=== PATIENT | female | born 1930 | race Caucasian/White ===

== ENCOUNTER 2017-09-28 11:06 | Emergency (ER) | payer MEDICARE ==
[~2017-09-28] VITALS: Ht 144.8 cm; Wt 52.0 kg
[~2017-09-28 11:06] MED LIST: AMLO5TAB22 PO; METO25 PO; NOVONP2 SQ
[2017-09-28 11:12] VITALS: BP 192/77; PULSE 17; PULSE 84; RESP 18; TEMP 97.5
[2017-09-28 11:22] VITALS: O2SAT 97
[2017-09-28] MEDS ORDERED: SODIUM CHLOR 0.9% 1000 ML INJ 1,000 ML IV ONE (11:26)
[2017-09-28] MEDS ORDERED: AMLO10TA2 PO (11:29)
[2017-09-28] MEDS ORDERED: AMLO5TAB2 PO (11:29)
[2017-09-28] MEDS ORDERED: NOVONP2 SQ (11:29)
--- NOTE | 2017-09-28 11:29 | PD ---
HPI Chief Complaint: Numbness/Tingling Time Seen by Provider: 11:26 Travel History International Travel<30 days: No Contact w/Intl Traveler<30days: No Traveled to known affect area: No History of Present Illness HPI 87-year-old female presents emergency department via [facility] for evaluation of generalized weakness that started this morning when she woke up. Says she woke up this morning and felt weak and "trembly" and across the floor to her bathroom. She states she felt her legs were "weak and shaking". Says that this lasted approximately 1 hour but called [facility] for evaluation and transport. Patient says that her symptoms have all but resolved prior to their arrival and says she feels "embarrassed" that she called. She denies fevers, chills, chest pain, shortness of breath, abdominal pain, nausea, vomiting, diarrhea. She denies one-sided weakness. She denies history of heart disease. She has a history of hypertension, asthma, diabetes mellitus, and breast cancer which is in remission. Of note, patient says that her air conditioning has been broke for approximately 1 week. According to [facility], her blood sugar was 107. She states compliance with the medications except this morning and says her blood pressure is elevated. PFSH Past Medical History Cardiovascular Problems: Yes Diabetes: Yes Patient Takes Glucophage: No Diminished Hearing: No Hypertension: Yes Respiratory: Yes Past Surgical History Hysterectomy: Yes Other Surgery: Yes (left mastectomy) Social History Alcohol Use: No Tobacco Use: No Substance Use: No Allergies-Medications (Allergen,Severity, Reaction): Coded Allergies: cefazolin (Unverified Allergy, Severe, Flushing, 11/24/16) Reported Meds & Prescriptions Reported Meds & Active Scripts Active Walker/Adult/Folding (Device) 1 Mis Mis Ea .XX DIRECTED Reported Novolin N Inj (Insulin Human NPH) 1,000 Unit/10 Ml Vial 0 SQ DIRECTED Sliding Scale As Directed. Amlodipine (Amlodipine Besylate) 10 Mg Tab 10 Mg PO DAILY Amlodipine (Amlodipine Besylate) 5 Mg Tab 5 Mg PO HS Review of Systems Except as stated in HPI: all other systems reviewed are Neg Physical Exam Narrative GENERAL: Well-developed well-nourished no apparent distress SKIN: Focused skin assessment warm/dry. Single papule on nose on erythematous base, 2 other papules on left cheek and left forehead without extension into scalp HEAD: Atraumatic. Normocephalic. EYES: Pupils equal and round. No scleral icterus. No injection or drainage. ENT: No nasal bleeding or discharge. Mucous membranes pink and moist. NECK: Trachea midline. No JVD. No lymphadenopathy CARDIOVASCULAR: Regular rate and rhythm. No murmur appreciated. RESPIRATORY: No accessory muscle use. Clear to auscultation. Breath sounds equal bilaterally. GASTROINTESTINAL: Abdomen soft, non-tender, nondistended. Hepatic and splenic margins not palpable. No CVA tenderness MUSCULOSKELETAL: No obvious deformities. No clubbing. No cyanosis. No edema. NEUROLOGICAL: Awake and alert. Cranial nerves II through XII intact. Motor and sensory grossly within normal limits. Five out of 5 muscle strength in all muscle groups. Normal speech. PSYCHIATRIC: Appropriate mood and affect; insight and judgment normal. Data Data Last Documented VS Vital Signs Date Time Temp Pulse Resp B/P (MAP) Pulse Ox O2 Delivery O2 Flow Rate FiO2 09/28/17 13:59 86 17 177/77 (110) 100 Room Air 09/28/17 11:12 97.5 Orders Orders Electrocardiogram (09/28/17 11:26) Complete Blood Count With Diff (09/28/17 11:26) Comprehensive Metabolic Panel (09/28/17 11:26) Magnesium (Mg) (09/28/17 11:26) Ckmb (Isoenzyme) Profile (09/28/17 11:26) Act Partial Throm Time (Ptt) (09/28/17 11:26) Prothrombin Time / Inr (Pt) (09/28/17 11:26) Urinalysis - C+S If Indicated (09/28/17 11:26) Chest, Single Ap (09/28/17 11:26) Ecg Monitoring (09/28/17 11:26) Iv Access Insert/Monitor (09/28/17 11:26) Oximetry (09/28/17 11:26) Sodium Chlor 0.9% 1000 Ml Inj (Ns 1000 M (09/28/17 11:26) Orthostatic Vital Signs (09/28/17 11:26) Amlodipine (Norvasc) (09/28/17 12:00) CKMB (09/28/17 11:30) CKMB% (09/28/17 11:30) Ed Discharge Order (09/28/17 14:10) Labs Laboratory Tests Test 09/28/17 11:30 09/28/17 13:00 White Blood Count 8.8 TH/MM3 Red Blood Count 5.32 MIL/MM3 Hemoglobin 14.1 GM/DL Hematocrit 44.1 % Mean Corpuscular Volume 82.9 FL Mean Corpuscular Hemoglobin 26.5 PG Mean Corpuscular Hemoglobin Concent 31.9 % Red Cell Distribution Width 14.2 % Platelet Count 290 TH/MM3 Mean Platelet Volume 10.2 FL Neutrophils (%) (Auto) 80.1 % Lymphocytes (%) (Auto) 14.9 % Monocytes (%) (Auto) 4.4 % Eosinophils (%) (Auto) 0.1 % Basophils (%) (Auto) 0.5 % Neutrophils # (Auto) 7.0 TH/MM3 Lymphocytes # (Auto) 1.3 TH/MM3 Monocytes # (Auto) 0.4 TH/MM3 Eosinophils # (Auto) 0.0 TH/MM3 Basophils # (Auto) 0.0 TH/MM3 CBC Comment DIFF FINAL Differential Comment Prothrombin Time 9.7 SEC Prothromb Time International Ratio 1.0 RATIO Activated Partial Thromboplast Time 23.3 SEC Blood Urea Nitrogen 34 MG/DL Creatinine 1.44 MG/DL Random Glucose 104 MG/DL Total Protein 7.7 GM/DL Albumin 3.9 GM/DL Calcium Level 9.3 MG/DL Magnesium Level 2.4 MG/DL Alkaline Phosphatase 103 U/L Aspartate Amino Transf (AST/SGOT) 17 U/L Alanine Aminotransferase (ALT/SGPT) 13 U/L Total Bilirubin 0.3 MG/DL Sodium Level 144 MEQ/L Potassium Level 4.8 MEQ/L Chloride Level 109 MEQ/L Carbon Dioxide Level 25.5 MEQ/L Anion Gap 10 MEQ/L Estimat Glomerular Filtration Rate 34 ML/MIN Total Creatine Kinase 116 U/L Creatine Kinase MB 3.1 NG/ML Urine Color YELLOW Urine Turbidity CLEAR Urine pH 6.0 Urine Specific Parrish 1.013 Urine Protein NEG mg/dL Urine Glucose (UA) 150 mg/dL Urine Ketones NEG mg/dL Urine Occult Blood NEG Urine Nitrite NEG Urine Bilirubin NEG Urine Urobilinogen LESS THAN 2 mg/dL Urine Leukocyte Esterase NEG Urine RBC LESS THAN 1 /hpf Urine WBC 1 /hpf Urine Squamous Epithelial Cells <1 /hpf Urine Hyaline Casts 1 /lpf Microscopic Urinalysis Comment CULT NOT INDICATED MDM Medical Decision Making Medical Screen Exam Complete: Yes Emergency Medical Condition: Yes Differential Diagnosis Generalized weakness, urinary tract infection, dehydration, medication noncompliance, hypoglycemia Narrative Course 87-year-old female with history of hypertension, asthma, diabetes mellitus, breast cancer presents emergency department for evaluation of generalized weakness. Patient says prior to [facility] arriving to her house, her symptoms resolved. Says currently she still feels somewhat weak but not nearly as weak as she did previously. Says she was able to drink coffee prior to coming to the emergency department today. Vital signs demonstrate elevated BP at 192/22. Otherwise vitals are stable. Physical exam findings a well-developed, well-nourished 87-year-old female in no acute distress. No focal neuro deficits. EKG shows sinus rhythm without STEMI changes at rate 79 bpm. 1 L normal saline administered as patient states she has had no air conditioning. 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 Orthostatics negative. Labs are significant for BUN/creatinine 34/1.44, stable. CK normal. Magnesium 2.4. Urinalysis noncontributory. Chest x-ray without acute process. I do not have an etiology for this patient's symptoms this morning but they were fleeting and lasted less than 2 hours, but she denies one sided weakness or indication of a TIA/CVA. She indicates she nearly refused care by [facility] but decided to come in the ED for further evaluation. I suspect there may be a slight dehydration component since she does not currently have air conditioning in her home and the temperature has been in the upper 80-90s I discussed this case with my attending. Pt will be discharged home and advised to follow up with her PCP. She was able to walk while in the ED today. She will be discharged with a prescription for a walker in case she requires this at home. This is to reduce the chance of falls while at home. Diagnosis Primary Impression: General weakness Referrals: Primary Care Physician Additional Instructions: Ensure you have adequate fluid intake and proper nutrition. Follow up with your primary care physician within 2-3 days. Consider an assisted living facility to ensure regular checks and assistance with activities. If you develop similar symptoms, avoid falls to avoid further injury. Scripts Walker/Adult/Folding (Walker/Adult/Folding) 1 Mis Mis EA .XX DIRECTED, #1 0 Refills Prov: Deshawn Moreira MD 09/28/17 Disposition: 01 DISCHARGE HOME Condition: Stable Vannessa Yanez Sep 28, 2017 11:29
[2017-09-28 11:53] VITALS: BP_SYST 180; BP_SYST 183; BP_SYST 189; BP_DIAS 75; BP_DIAS 76
[2017-09-28 11:57] LABS: BASOPHIL % 0.5 % (0.0-2.0); EOSINOPHIL % 0.1 % (0.0-4.0); HEMATOCRIT 44.1 % (35.0-46.0); HEMOGLOBIN 14.1 GM/DL (11.6-15.3); LYMPH % 14.9 % (9.0-44.0); LYMPHOCYTE # 1.3 TH/MM3 (1.0-4.8); MEAN CELL VOLUME 82.9 FL (80.0-100.0); MEAN CORPUSCULAR HEMOGLOBIN 26.5 PG (27.0-34.0); MEAN CORPUSCULAR HGB CONC 31.9 % (32.0-36.0); MEAN PLATELET VOLUME 10.2 FL (7.0-11.0); MONO % 4.4 % (0.0-8.0); MONOCYTE # 0.4 TH/MM3 (0-0.9); NEUT % 80.1 % (16.0-70.0); PLATELET COUNT 290 TH/MM3 (150-450); RED BLOOD COUNT 5.32 MIL/MM3 (4.00-5.30); RED CELL DISTRIBUTION WIDTH 14.2 % (11.6-17.2); WHITE BLOOD COUNT 8.8 TH/MM3 (4.0-11.0)
[2017-09-28 12:05] LABS: PROTHROMBIN TIME - PATIENT 9.7 SEC (9.8-11.6)
[2017-09-28 12:09] LABS: ALBUMIN 3.9 GM/DL (3.4-5.0); ALT (GPT) 13 U/L (10-53); AST (GOT) 17 U/L (15-37); BICARBONATE 25.5 MEQ/L (21.0-32.0); BLOOD UREA NITROGEN 34 MG/DL (7-18); CALCIUM 9.3 MG/DL (8.5-10.1); CHLORIDE 109 MEQ/L (98-107); CREATININE 1.44 MG/DL (0.50-1.00); GLOMERULAR FILTRATION RATE 34 ML/MIN (>89); GLUCOSE,RANDOM 104 MG/DL (74-106); MAGNESIUM 2.4 MG/DL (1.5-2.5); SODIUM (NA) 144 MEQ/L (136-145)
[2017-09-28 12:12] LABS: ALKALINE PHOSPHATASE 103 U/L (45-117); TOTAL BILIRUBIN ADULT 0.3 MG/DL (0.2-1.0); TOTAL PROTEIN 7.7 GM/DL (6.4-8.2)
--- NOTE | 2017-09-28 12:21 | RADRPT ---
EXAM DATE: 09/28/2017 12:15 PM EDT AGE/SEX: 87 years / Female INDICATIONS: Syncope and weakness. CLINICAL DATA: This is the patient's initial encounter. Patient reports that signs and symptoms have been present for 1 day and indicates a pain score of 0/10. MEDICAL/SURGICAL HISTORY: Hypertension. Asthma. Mastectomy, left. COMPARISON: [facility] [place], CHEST SINGLE AP, 08/20/2015. . FINDINGS: A single AP view of the chest demonstrates the lungs to be symmetrically aerated without evidence of mass, infiltrate or effusion. The cardiomediastinal contours are unremarkable. Osseous structures a re intact. Surgical clips in the left axillary area. CONCLUSION: No acute intrathoracic disease. Stable examination. Electronically signed by: Ronni Duvall MD 09/28/2017 12:19 PM EDT
[2017-09-28 13:32] LABS: BILIRUBIN, URINE NEG (NEG); BLOOD, URINE NEG (NEG); GLUCOSE,URINE 150 mg/dL (NEG); HYALINE CAST, URINE 1 /lpf (RARE); KETONE, URINE NEG (NEG); NITRITE,URINE NEG (NEG); SQUAMOUS EPITHELIAL CELL URINE <1 /hpf (0-5); URINE COLOR YELLOW (YELLW/STRAW); URINE LEUKOCYTE ESTERASE NEG (NEG)
[2017-09-28] MEDS ORDERED: WALKER/ADULT/FO1 MIS (13:45)
[2017-09-28 13:59] VITALS: BP 177/77; PULSE 86; RESP 17; O2SAT 100
[2017-09-28 15:03] VITALS: BP 175/71
--- NOTE | 2017-09-28 15:10 | PD ---
Data Data Last Documented VS Vital Signs Date Time Temp Pulse Resp B/P (MAP) Pulse Ox O2 Delivery O2 Flow Rate FiO2 09/28/17 15:03 79 17 175/71 (105) 100 09/28/17 13:59 Room Air 09/28/17 11:12 97.5 Orders Orders Electrocardiogram (09/28/17 11:26) Complete Blood Count With Diff (09/28/17 11:26) Comprehensive Metabolic Panel (09/28/17 11:26) Magnesium (Mg) (09/28/17 11:26) Ckmb (Isoenzyme) Profile (09/28/17 11:26) Act Partial Throm Time (Ptt) (09/28/17 11:26) Prothrombin Time / Inr (Pt) (09/28/17 11:26) Urinalysis - C+S If Indicated (09/28/17 11:26) Chest, Single Ap (09/28/17 11:26) Ecg Monitoring (09/28/17 11:26) Iv Access Insert/Monitor (09/28/17 11:26) Oximetry (09/28/17 11:26) Sodium Chlor 0.9% 1000 Ml Inj (Ns 1000 M (09/28/17 11:26) Orthostatic Vital Signs (09/28/17 11:26) Amlodipine (Norvasc) (09/28/17 12:00) CKMB (09/28/17 11:30) CKMB% (09/28/17 11:30) Ed Discharge Order (09/28/17 14:10) Labs Laboratory Tests Test 09/28/17 11:30 09/28/17 13:00 White Blood Count 8.8 TH/MM3 Red Blood Count 5.32 MIL/MM3 Hemoglobin 14.1 GM/DL Hematocrit 44.1 % Mean Corpuscular Volume 82.9 FL Mean Corpuscular Hemoglobin 26.5 PG Mean Corpuscular Hemoglobin Concent 31.9 % Red Cell Distribution Width 14.2 % Platelet Count 290 TH/MM3 Mean Platelet Volume 10.2 FL Neutrophils (%) (Auto) 80.1 % Lymphocytes (%) (Auto) 14.9 % Monocytes (%) (Auto) 4.4 % Eosinophils (%) (Auto) 0.1 % Basophils (%) (Auto) 0.5 % Neutrophils # (Auto) 7.0 TH/MM3 Lymphocytes # (Auto) 1.3 TH/MM3 Monocytes # (Auto) 0.4 TH/MM3 Eosinophils # (Auto) 0.0 TH/MM3 Basophils # (Auto) 0.0 TH/MM3 CBC Comment DIFF FINAL Differential Comment Prothrombin Time 9.7 SEC Prothromb Time International Ratio 1.0 RATIO Activated Partial Thromboplast Time 23.3 SEC Blood Urea Nitrogen 34 MG/DL Creatinine 1.44 MG/DL Random Glucose 104 MG/DL Total Protein 7.7 GM/DL Albumin 3.9 GM/DL Calcium Level 9.3 MG/DL Magnesium Level 2.4 MG/DL Alkaline Phosphatase 103 U/L Aspartate Amino Transf (AST/SGOT) 17 U/L Alanine Aminotransferase (ALT/SGPT) 13 U/L Total Bilirubin 0.3 MG/DL Sodium Level 144 MEQ/L Potassium Level 4.8 MEQ/L Chloride Level 109 MEQ/L Carbon Dioxide Level 25.5 MEQ/L Anion Gap 10 MEQ/L Estimat Glomerular Filtration Rate 34 ML/MIN Total Creatine Kinase 116 U/L Creatine Kinase MB 3.1 NG/ML Urine Color YELLOW Urine Turbidity CLEAR Urine pH 6.0 Urine Specific Anderson 1.013 Urine Protein NEG mg/dL Urine Glucose (UA) 150 mg/dL Urine Ketones NEG mg/dL Urine Occult Blood NEG Urine Nitrite NEG Urine Bilirubin NEG Urine Urobilinogen LESS THAN 2 mg/dL Urine Leukocyte Esterase NEG Urine RBC LESS THAN 1 /hpf Urine WBC 1 /hpf Urine Squamous Epithelial Cells <1 /hpf Urine Hyaline Casts 1 /lpf Microscopic Urinalysis Comment CULT NOT INDICATED MDM Supervised Visit with JEOVANNY: Yes Narrative Course I, Dr. Moreira, have reviewed the advance practice practitioner's documentation and am in agreement, met with the patient face to face, made the diagnosis, and the medical decision making was done by me. *My assessment and Findings: Patient came with some vague symptomatology. Extensive workup was done which is negative for acute problem. I rechecked her and she looks comfortable and we ambulated her and she stable for outpatient follow-up. Diagnosis Primary Impression: General weakness Referrals: Primary Care Physician Patient Instructions: General Instructions Departure Forms: Tests/Procedures Additional Instruction: Ensure you have adequate fluid intake and proper nutrition. Follow up with your primary care physician within 2-3 days. Consider an assisted living facility to ensure regular checks and assistance with activities. If you develop similar symptoms, avoid falls to avoid further injury. Scripts Walker/Adult/Folding (Walker/Adult/Folding) 1 Mis Mis EA .XX DIRECTED, #1 0 Refills Prov: Deshawn Moreira MD 09/28/17 Disposition: 01 DISCHARGE HOME Condition: Stable Deshawn Moreira MD Sep 28, 2017 15:10
--- NOTE | 2017-09-29 14:07 | EKG ---
Date Performed: 09/28/2017 Time Performed: 11:15:36 PTAGE: 87 years EKG: Sinus rhythm WITH OCCASIONAL VENTRICULAR PREMATURE COMPLEXES BORDERLINE ECG NO PREVIOUS TRACING DOCTOR: Osmin Madsen Interpretating Date/Time 09/29/2017 14:06:49
== END 2017-09-28 15:09 | disposition home or self-care (01) ==
LOC: NEPC 11:06
DX: R53.1 Weakness (principal); R23.8 Other skin changes; I10 Essential (primary) hypertension; J45.909 Unspecified asthma, uncomplicated; E11.9 Type 2 diabetes mellitus without complications; Z85.3 Personal history of malignant neoplasm of breast; Z79.4 Long term (current) use of insulin; Z79.899 Other long term (current) drug therapy; Z88.8 Allergy status to other drugs, medicaments and biological substances
CPT/HCPCS: 71045; 80053; 81001; 82550; 82552; 83735; 85025; 85610; 85730; 93005; 96360; 96361; 99285; J7030